=== PATIENT | male | born 1960 | race Caucasian/White ===

== ENCOUNTER 2019-03-03 08:10 | Day surgery (SDC) | payer OTHER ==
[2019-02-28 16:37] VITALS: BMI 25.4
[2019-03-03] VITALS (12 sets, daily range): BP systolic 106–147; BP diastolic 67–99; PULSE 64–84; RESP 10–21; Ht 162.6 cm; Wt 68.0 kg
[~2019-03-03] VITALS: Ht 162.6 cm; Wt 68.0 kg
--- NOTE | 2019-03-03 06:05 | HPN ---
Date/Time of Note Date/Time of Note DATE: 03/03/19 TIME: 06:05 Interval H&P Admission Note Pt. seen H&P reviewed: No system changes ERIC VARGHESE MD March 03, 2019 06:05
--- NOTE | 2019-03-03 06:06 | OPR ---
Date/Time of Note Date/Time of Note DATE: 03/03/19 TIME: 06:05 Operative Report Procedure Date: March 03, 2019 Preoperative Diagnosis Right shoulder rotator cuff tear Postoperative Diagnosis 1. Right shoulder rotator cuff tear (supraspinatus) 2. Right shoulder acromioclavicular joint arthritis 3. Right shoulder impingement 4. Right shoulder extensive labral tearing Operation/Procedure Performed 1. Right shoulder arthroscopic rotator cuff repair 2. Right shoulder arthroscopic distal clavicular excision 3. Right shoulder arthroscopic acromioplasty with coracoacromial ligament release 4. Right shoulder arthroscopic extensive debridement of glenohumeral joint Surgeon see signature line Noise Abatement Engineer Artemio Watson PA-C Anesthesia Type: general Estimated Blood Loss: minimal Transfusion none Specimen None Grafts/Implants See body of operative note Complications none Pt Condition Post Procedure: stable Disposition: PACU Procedure Description OPTICAL FABRICATOR SURGEON: Artemio Watson PA-C was asked to be present at my request as a result of the complexity associated with this procedure including positioning of the extremities, manipulation of the arthroscope and assistance with time. In my opinion the assistance offered by a surgical supply assistant is insufficient and Mr. Watson should be compensated for his time. PROCEDURE IN DETAIL: Following the administration of general anesthesia supplemented with a peripheral nerve block for postoperative pain control, the patient was examined under anesthesia. Examination of the right shoulder revealed significant stiffness with about 130 degrees of forward flexion and 80 degrees abduction. A gentle manipulation was then undertaken and passively she was able to be flexed up to about 150 degrees, abduction 110 degrees, external rotation 80 degrees and internal rotation 20 degrees. Several significant adhesions were noted to be released. The patient was then placed in the right lateral decubitus position. Sterile prep and drape was then undertaken of the left shoulder. Anterior and posterior glenohumeral portals were established. Glenohumeral arthroscopy revealed that the humeral and glenoid articular cartilage revealed no significant findings. There was some mild softening in a generalized fashion.. The superior labrum was diffusely torn with extensive fraying that extended from 9:00 to the 3 o'clock position. The biceps had severe synovitis with subluxation and significant fraying. In addition, the biceps anchor was detached completely. The subscapularis was visualized and this was all with a solid attachment. No abnormalities are noted anteriorly with the exception of the severe synovitis which was actually in the notch itself. Further evaluation of the supraspinatus revealed complete tear of the supraspin atus measuring 2 x 2 cm. Some significant frayed tissue was also noted. Infraspinatus was normal. The superior labrum then debrided extensively from the 9:00 to the 3 o'clock position was undertaken down to stable tissue. Severe synovitis was also debr ided down to stable tissue. The biceps tendon was also released and seen to retract. The severe synovitis in the anterior compartment was then debrided. The subacromial space was then entered and very severe bursal reactive tissue was noted. There was a thickened coracoacromial ligament, with a 5 to 7 mm acromial prominence noted, which extended medially as well into the acromi oclavicular joint. The anterior acromion was then cleared of soft tissue and the coracoacromial ligament released. The acromion was then resected approximately 5 to 7 mm down to a flat surface. The outer surface of the rotator cuff was then inspected. The rotator cuff tear was noted to be complete and a debridement of this area was undertaken down to stable tissue in order to prepare for the repair. The subacromial space was then further evaluated medially. The acromioclavicular joint was then skeletonized and a significant inferior osteophyte was noted. The AC joint capsule was then completely open and prepared and the distal clavicle was skeletonized for a distance of 10 mm. The bur was then inserted and 10 mm of the distal clavicle was then excised. The rotator cuff repair was then undertaken. Specifically, a 5 mm, triple loaded titanium anchor was then inserted into the tuberosity. The sutures were then passed in a mattress fashion and tied using sliding, locking knots. A solid repair of the rotator cuff was completed. The joint was then thoroughly irrigated bony debris removed, the deep tissues were approximated using 4-0 Monocryl, followed by a sterile dressing. A sling was then applied. The patient was awakened and transported to the recovery room in stable condition. ERIC VARGHESE MD March 03, 2019 06:06
[~2019-03-03 08:10] MED LIST: ALLOPURINOL PO; CEFAZOLIN 2 GM/50 ML (PMX) 50 ML IVPB SCH; DEXAMETHASONE 2 MG TAB PO SCH; GABAPENTIN 300 MG CAP PO SCH; TRANEXAMIC ACID 1GM/100ML(PMX) 100 ML IVPB SCH
[2019-03-03] MEDS ORDERED: LACTATED RINGER'S 1,000 ML IV SCH (09:30)
--- NOTE | 2019-03-03 11:20 | PREAC ---
Date/Time of Note Date/Time of Note DATE: 03/03/19 TIME: 11:18 Anesthesia Eval and Record Evaluation Time Pre-Procedure Interview DATE: 03/03/19 TIME: 11:18 Age 58 Sex male NPO: 8 hrs Preoperative diagnosis Rt shoulder Rotator cuff tear Planned procedure Rt shoulder arthroscopy Past Medical History Past Medical History: Includes Cardio: HTN, Dyslipidemia GI: Obesity Surgery & Anesthesia Issues No known issue Meds Anticoagulation: No Beta Gladis within 24 hr: No Reason Beta Gladis not given: Pt. not on B-Gladis Discontinued Reported Medications [Allopurinol] No Conflict Check, PO 02/08/16 Current Medications Cefazolin Sodium/ Dextrose 50 ml @ 100 mls/hr PRE-OP IVPB ; Start 03/03/19 at 06:00; Stop 03/03/19 at 16:00 Gabapentin (Neurontin) 300 mg PRE-OP PO Last administered on 03/03/19at 09:26; Admin Dose 300 MG; Start 03/03/19 at 06:00; Stop 03/03/19 at 16:00 Tranexamic Acid 100 ml @ 200 mls/hr Pre-op IVPB ; Start 03/03/19 at 06:00; Stop 03/03/19 at 16:00 Dexamethasone (Decadron) 2 mg ONCE PO Last administered on 03/03/19at 09:26; Admin Dose 2 MG; Start 03/03/19 at 06:00; Stop 03/03/19 at 16:00 Lactated Ringer's 1,000 ml @ 20 mls/hr Q24H IV ; Start 03/03/19 at 09:30 Meds reviewed: Yes Allergies Coded Allergies: No Known Allergy (Unverified , 03/03/19) Allergies Reviewed: Yes Labs/Studies Labs Reviewed: Reviewed by anesthesiologist test: N/A Studies: ECG Pre-procedure Exam Last vitals Vital Signs Date Temp Pulse Resp B/P (MAP) Pulse Ox O2 O2 Flow FiO2 Time Delivery Rate 03/03/19 97.5 66 16 118/87 99 09:45 (97) Airway: Adequate mouth opening, Adequate thyromental dist Mallampati: Mallampati II Teeth: Normal Lung: Normal Heart: Normal ASA Physical Status ASA physical status: 3 Emergency: None Planned Anesthetic General/MAC: LMA Planned Pain Management Parenteral pain med, Local by surgeon Pre-operative Attestations Prior to commencing anesthesia and surgery, the patient was re-evaluated, there was verification of: *The patient's identity *The results of appropriate recent lab work and preoperative vital signs *The above evaluation not changing prior to induction *Anesthetic plan, risk benefits, alternative and complications discussed with patient/family; questions answered; patient/family understands, accepts and wishes to proceed. INES DUDLEY MD March 03, 2019 11:20
[2019-03-03] MEDS ORDERED: MIDAZOLAM 1 MG/ML 2 ML INJ ONE (11:22)
[2019-03-03] MEDS ORDERED: ROPIVACAINE 0.5 % 30 ML VIAL ONE (11:23)
[2019-03-03] MEDS ORDERED: TRANEXAMIC ACID 1GM/100ML(PMX) 100 ML ONE (11:44)
--- NOTE | 2019-03-03 12:37 | PDOCDIS ---
Discharge Instructions DIAGNOSIS Discharge Diagnosis Rotator cuff tear CONDITION [id number] Patient Condition: [id number] Good ACTIVITY: [id number] Activity Restrictions: [id number] Rest between Activity Keep Limb Elevated [id number] Bathing Restrictions: [id number] Shower FOLLOW UP/APPOINTMENTS Follow-up Plan Two weeks in the office SCHOOL/WORK RELEASE May return to School/Work with: With Restrictions School/Work Release Comment: Five pound table top activities for four weeks ERIC VARGHESE MD March 03, 2019 12:37
[2019-03-03] MEDS ORDERED: PROPOFOL 20 ML ONE (12:39)
[2019-03-03] MEDS ORDERED: LIDOCAINE 2% (SDV) 5 ML INJ ONE (12:39)
[2019-03-03] MEDS ORDERED: CEFAZOLIN 1 GM INJ ONE (12:40)
[2019-03-03] MEDS ORDERED: ONDANSETRON 4 MG INJ ONE (12:40)
[2019-03-03] MEDS ORDERED: METOCLOPRAMIDE 10 MG INJ IV PRN (13:00)
[2019-03-03] MEDS ORDERED: DIPHENHYDRAMINE 50 MG INJ IV PRN (13:00)
[2019-03-03] MEDS ORDERED: MEPERIDINE 25 MG INJ IV PRN (13:00)
[2019-03-03] MEDS ORDERED: KETOROLAC 30 MG INJ IV PRN (13:00)
[2019-03-03] MEDS ORDERED: ONDANSETRON 4 MG INJ IV PRN (13:00)
[2019-03-03] MEDS ORDERED: FENTAnyl 50 MCG/ML VIAL IV PRN (13:00)
[2019-03-03] MEDS ORDERED: HYDROmorphONE 1 MG/5 ML IV SYRINGE IV PRN ×2 (13:00)
--- NOTE | 2019-03-03 13:00 | PAC ---
Date/Time of Note Date/Time of Note DATE: 03/03/19 TIME: 12:59 Post-Anesthesia Notes Post-Anesthesia Note Last documented vital signs Vital Signs Date Temp Pulse Resp B/P (MAP) Pulse Ox O2 O2 Flow FiO2 Time Delivery Rate 03/03/19 97.5 66 16 118/87 99 09:45 (97) Activity: WNL Respiratory function: WNL Cardiovascular function: WNL Mental status: Baseline Pain reasonably controlled: Yes Hydration appropriate: Yes Nausea/Vomiting absent: Yes Comments BP:112/56, P:77, Spo2:100%, T:98,8 INES DUDLEY MD March 03, 2019 13:00
== END 2019-03-03 14:30 | disposition home or self-care (01) ==
LOC: SDS 08:10
PROVIDERS: ATTEND Orthopaedic Surgery
DX: M25.811 Other specified joint disorders, right shoulder (principal); M19.011 Primary osteoarthritis, right shoulder; M75.101 Unspecified rotator cuff tear or rupture of right shoulder, not specified as traumatic; S43.491D Other sprain of right shoulder joint, subsequent encounter; X58.XXXD Exposure to other specified factors, subsequent encounter; I10 Essential (primary) hypertension
CPT/HCPCS: 29824; 29826; 29827; J0690; J2250; J2405; J2795; J3010; Z7512; Z7610